=== PATIENT | female | born 1955 | race Caucasian/White ===

== ENCOUNTER 2017-10-14 13:03 | Emergency (ER) | payer BC ==
[2017-10-14 13:27] VITALS: BP 111/68; PULSE 74; RESP 18; TEMP 97.5
--- NOTE | 2017-10-14 13:54 | ED ---
General Adult HPI - General Chief complaint: Skin/Abscess/Foreign Body Stated complaint: Insect bite rt arm Time Seen by Provider: 10/14/17 13:31 Source: patient, RN notes reviewed Mode of arrival: ambulatory Limitations: no limitations - History of Present Illness Initial comments: 62-year-old female presents to the emergency department for a chief complaint of bug bite or sting 1.5 hours ago. Patient states she was working in her garden when she felt a stinging in her dorsal right arm. Patient states she has had bad reactions to bee stings in the past and has been treated at urgent cares. At this time patient denies any shortness of breath or swelling in the lips tongue or throat. Patient did not take Benadryl because she did not have any at home. At this time patient admits she feels well. denies fever or chills at home. Patient has no other complaints at this time including shortness of breath, chest pain, abdominal pain, nausea or vomiting, headache, or visual changes. - Related Data Previous Rx's Medication Instructions Recorded Cephalexin [Keflex] 500 mg PO Q6HR 10 Days cap 10/14/17 diphenhydrAMINE [Benadryl] 50 mg PO QID PRN #20 capsule 10/14/17 Allergies Allergy/AdvReac Type Severity Reaction Status Date / Time bee venom protein (honey bee) Allergy Swelling Verified 10/14/17 13:28 Review of Systems ROS Statement: Those systems with pertinent positive or pertinent negative responses have been documented in the HPI. ROS Other: All systems not noted in ROS Statement are negative. Past Medical History Past Medical History: Hyperlipidemia, Hypertension History of Any Multi-Drug Resistant Organisms: None Reported Past Surgical History: Hysterectomy, Orthopedic Surgery Additional Past Surgical History / Comment(s): right ankle surgery Past Psychological History: No Psychological Hx Reported Smoking Status: Current every day smoker Past Alcohol Use History: None Reported Past Drug Use History: None Reported General Exam Limitations: no limitations General appearance: alert, in no apparent distress Head exam: Present: atraumatic, normocephalic, normal inspection Eye exam: Present: normal appearance. Absent: scleral icterus, conjunctival injection ENT exam: Present: normal oropharynx (oropharynx patent, uvula midline,no swelling of lips, tongue, throat) Neck exam: Present: normal inspection, full ROM. Absent: tenderness, meningismus, lymphadenopathy Respiratory exam: Present: normal lung sounds bilaterally. Absent: respiratory distress, wheezes, rales, rhonchi, stridor Cardiovascular Exam: Present: regular rate, normal rhythm, normal heart sounds. Absent: systolic murmur, diastolic murmur, rubs, gallop, clicks Extremities exam: Present: full ROM (full ROM of Right elbow without pain), normal capillary refill (Refill less than 2 seconds and radial pulse 2+ in the right upper extremity), other (there is a 2 cm x 2 cm area of unrelated erythema above the right elbow with a small scab. Area is warm to the touch, non -tender. No streaking redness or signs of abscess. This is lower on the arm than where patient was bitten or stung. No breaks in the skin where patient states she was bitten or stunf.). Absent: tenderness, joint swelling Course Vital Signs 10/14/17 13:24 Temperature 97.5 F L Pulse Rate 74 Respiratory 18 Rate Blood Pressure 111/68 O2 Sat by Pulse 98 Oximetry Medical Decision Making - Medical Decision Making 62-year-old female presents to the emergency department for a chief complaint of bug bite or bee sting in the right arm about 1.5 hours ago. Patient states she is ALLERGIC to bees so came to the emergency department. At this time patient denies any shortness of breath or swelling the lips tongue or throat. At this time patient feels fine and does not have any symptoms consistent with past ALLERGIC reactions to bee stings. On exam oropharynx patent no swelling of the lips tongue or throat. Patient's lungs are clear to auscultation bilaterally. There is a small 2 cm x 2 cm area of erythema on related to the bug bite with a small scab. This is likely developing a cellulitis. No abscess or streaking redness. Full range motion in the right elbow. Patient will be treated with Keflex. Patient was bitten higher on the right arm, no defects in the skin at this time. Patient will be given Benadryl as a prescription because she is driving home today. She will take it if needed for ALLERGIC reaction. She'll return to the emergency department immediately if she has any worsening symptoms such as shortness of breath or swelling in the lips tongue or throat. She will also monitor for spreading redness and return if this occurs. Disposition Clinical Impression: Insect bite, Cellulitis Disposition: HOME SELF-CARE Condition: Good Instructions: Cellulitis (ED), General Allergic Reaction (ED) Additional Instructions: Please take Keflex as directed for infection of arm. Take benadryl if you begin to develop an allergic reaction to bug bite on the arm. Return to the emergency department immediately if you notice any worsening symptoms such as fever or swelling in the lips tongue or throat or difficulty breathing. Prescriptions: Cephalexin [Keflex] 500 mg PO Q6HR 10 Days cap diphenhydrAMINE [Benadryl] 50 mg PO QID PRN #20 capsule PRN Reason: Allergic Reaction Is patient prescribed a controlled substance at d/c from ED?: No Referrals: Kemar Lopez DO [Primary Care Provider] - 1-2 days Time of Disposition: 13:49
== END 2017-10-14 14:00 | disposition home or self-care (01) ==
LOC: EC 13:03
DX: L03.113 Cellulitis of right upper limb (principal); S40.861A Insect bite (nonvenomous) of right upper arm, initial encounter; F17.200 Nicotine dependence, unspecified, uncomplicated; Z91.018 Allergy to other foods; W57.XXXA Bitten or stung by nonvenomous insect and other nonvenomous arthropods, initial encounter; Y93.H2 Activity, gardening and landscaping; Y92.007 Garden or yard of unspecified non-institutional (private) residence as the place of occurrence of the external cause
CPT/HCPCS: 99281

== ENCOUNTER 2019-10-12 19:34 | Emergency (ER) | payer BC ==
[2019-10-12 19:40] VITALS: TEMP 98
[2019-10-12] MEDS ORDERED: methylPREDNISolone SOD SUCCI 125 MG/2 ML VIAL IM ONE (20:07)
[2019-10-12] MEDS ORDERED: diphenhydrAMINE 50 MG CAP PO STA (20:07)
[2019-10-12] MEDS ORDERED: FAMOTIDINE 20 MG TAB PO STA (20:07)
--- NOTE | 2019-10-12 20:08 | ED ---
General Adult HPI - General Chief complaint: Skin/Abscess/Foreign Body Stated complaint: Bee Stings Time Seen by Provider: 10/12/19 19:50 Source: patient, RN notes reviewed Mode of arrival: ambulatory Limitations: no limitations - History of Present Illness Initial comments: 64-year-old female presents to the emergency department for a chief complaint of bee sting. Patient states she was stung 3 times by a wasp in the left arm. Patient states that her was one time she was stung by a bee that she had swelling of her face. Patient states she has been stung several times and has not had a reaction. Patient was stung about one hour prior to arrival. She does not have any swelling of the lips tongue or throat. She does not have shortness of breath or chest pain. Patient feels well at this time.Patient has no other complaints at this time including shortness of breath, chest pain, abdominal pain, nausea or vomiting, headache, or visual changes. - Related Data Home Medications Medication Instructions Recorded Confirmed Cholecalciferol [Vitamin D3 (25 1,000 unit PO DAILY 10/12/19 10/12/19 Mcg = 1000 Iu)] Ibuprofen [Motrin Ib] 400 mg PO Q8H PRN 10/12/19 10/12/19 [place]-3 Fatty Acids [[place]-3] 2,000 mg PO DAILY 10/12/19 10/12/19 Ramipril 10 mg PO HS 10/12/19 10/12/19 Simvastatin [Zocor] 20 mg PO HS 10/12/19 10/12/19 hydroCHLOROthiazide [Hydrodiuril] 25 mg PO DAILY 10/12/19 10/12/19 Previous Rx's Medication Instructions Recorded diphenhydrAMINE HCL [Benadryl] 25 mg PO Q6H PRN #20 tab 10/12/19 predniSONE 50 mg PO DAILY #4 tablet 10/12/19 Allergies Allergy/AdvReac Type Severity Reaction Status Date / Time bee venom protein (honey bee) Allergy Swelling Verified 10/12/19 20:31 Review of Systems ROS Statement: Those systems with pertinent positive or pertinent negative responses have been documented in the HPI. ROS Other: All systems not noted in ROS Statement are negative. Past Medical History Past Medical History: Hyperlipidemia, Hypertension History of Any Multi-Drug Resistant Organisms: None Reported Past Surgical History: Hysterectomy, Orthopedic Surgery Additional Past Surgical History / Comment(s): right ankle surgery Past Psychological History: No Psychological Hx Reported Smoking Status: Current every day smoker Past Alcohol Use History: None Reported Past Drug Use History: None Reported General Exam Limitations: no limitations General appearance: alert, in no apparent distress Head exam: Present: atraumatic, normocephalic, normal inspection Eye exam: Present: normal appearance, PERRL, EOMI. Absent: scleral icterus, conjunctival injection, periorbital swelling ENT exam: Present: normal exam, normal oropharynx (No evidence of angioedema), mucous membranes moist, TM's normal bilaterally, normal external ear exam Neck exam: Present: normal inspection, full ROM. Absent: tenderness, meningismus, lymphadenopathy Respiratory exam: Present: normal lung sounds bilaterally. Absent: respiratory distress, wheezes, rales, rhonchi, stridor Cardiovascular Exam: Present: regular rate, normal rhythm, normal heart sounds. Absent: systolic murmur, diastolic murmur, rubs, gallop, clicks GI/Abdominal exam: Present: soft, normal bowel sounds. Absent: distended, tenderness, guarding, rebound, rigid Extremities exam: Present: other (There is no erythema or significant edema of the left arm where patient was stung.) Neurological exam: Present: alert Course Vital Signs 10/12/19 10/12/19 10/12/19 19:36 20:32 20:34 Temperature 98 F Pulse Rate 79 75 Respiratory 18 16 16 Rate Blood Pressure 135/81 116/66 O2 Sat by Pulse 97 97 Oximetry Medical Decision Making - Medical Decision Making Patient is well-appearing. Was given Benadryl and Solu-Medrol and Pepcid here in the emergency room. Did not have any symptoms of angioedema shortness of breath or chest pain. No anaphylaxis. No significant local reaction. Patient will be discharged home to follow up with primary care. She'll return here for any worsening symptoms. Disposition Clinical Impression: Bee sting Disposition: HOME SELF-CARE Condition: Good Instructions (If sedation given, give patient instructions): Insect Bite or Sting (ED) Additional Instructions: Please take Benadryl as needed. Take steroid once a day. Start this tomorrow as you were given a shot of steroids in the emergency room. If you have any worsening symptoms or swelling of the lips tongue or throat return to the emergency room. Otherwise follow-up with your doctor in one to 2 days. Prescriptions: diphenhydrAMINE HCL [Benadryl] 25 mg PO Q6H PRN #20 tab PRN Reason: Allergic Reaction predniSONE 50 mg PO DAILY #4 tablet Is patient prescribed a controlled substance at d/c from ED?: No Referrals: Kemar Lopez DO [Primary Care Provider] - 1-2 days Time of Disposition: 20:38
[2019-10-12 20:34] VITALS: RESP 16
[2019-10-12 20:35] VITALS: BP 116/66; PULSE 75
== END 2019-10-12 21:24 | disposition home or self-care (01) ==
LOC: EC 19:34
DX: T63.441A Toxic effect of venom of bees, accidental (unintentional), initial encounter (principal); I10 Essential (primary) hypertension; E78.5 Hyperlipidemia, unspecified; F17.200 Nicotine dependence, unspecified, uncomplicated; Z79.899 Other long term (current) drug therapy; Z91.030 Bee allergy status
CPT/HCPCS: 99282; 96372; J2930

== ENCOUNTER 2019-10-21 16:18 | Emergency (ER) | payer BC ==
[2019-10-21 16:46] VITALS: BP 109/69; PULSE 79; RESP 18; TEMP 97.8
[2019-10-21] MEDS ORDERED: dexAMETHasone 4 MG TAB PO STA (17:14)
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
== END 2019-10-21 17:41 | disposition home or self-care (01) ==
LOC: EC 16:18
DX: T63.441A Toxic effect of venom of bees, accidental (unintentional), initial encounter (principal); I10 Essential (primary) hypertension; E78.5 Hyperlipidemia, unspecified; F17.200 Nicotine dependence, unspecified, uncomplicated; Z79.899 Other long term (current) drug therapy; Z91.030 Bee allergy status
CPT/HCPCS: 99282; J8540

== ENCOUNTER 2022-05-27 06:39 | Emergency (ER) | payer MEDICARE ==
[~2022-05-27 06:39] MED LIST: EPINEPHrine 10 ML SYRINGE (0.1 MG/ML) ONE; SODIUM BICARB 8.4% 50 ML SYR (1 MEQ/ML) ONE
[2022-05-27 06:47] LABS: Glucose,Whole Blood 162 mg/dL (70-110)
[2022-05-27 06:48] VITALS: PULSE 0; RESP 0
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
== END 2022-05-27 11:41 | disposition expired ==
LOC: EC 06:39
DX: I46.9 Cardiac arrest, cause unspecified (principal); I10 Essential (primary) hypertension; E78.5 Hyperlipidemia, unspecified; F17.200 Nicotine dependence, unspecified, uncomplicated; Z79.899 Other long term (current) drug therapy; Z91.030 Bee allergy status
CPT/HCPCS: 36415; 31500; 99285; J0171